=== PATIENT | male | born 1935 | race Caucasian/White ===

== ENCOUNTER 2018-02-15 11:29 | Inpatient (IN) | payer OTHER ==
[~2018-02-15] VITALS: Ht 165.1 cm; Wt 53.1 kg
[2018-02-15] MEDS ORDERED: VASOTEC10 MG PO (12:06)
[2018-03-20] MEDS ORDERED: INTESTINEX680 M1 PO ×2 (10:43→10:48)
[2018-03-20] MEDS ORDERED: OMEPRAZOLE20 M1 PO (10:43)
[2018-03-20] MEDS ORDERED: CLONAZEPAM0.25 MG PO (10:45)
[2018-03-20] MEDS ORDERED: OMEPRAZOLE20 MG PO (10:48)
[2018-03-20] MEDS ORDERED: INTEGRA F CAPS1 EACH PO (10:48)
== END 2018-03-20 14:08 | DRG 329 ==
LOC: ER 11:29 → EDBD 11:29 → ER 12:01 → SURG 18:11 → SEC-K 18:11 → MEDI 18:11 → SURG 02-21 16:48 → SURH 03-06 22:25
PROVIDERS: Surgery; Urology
PROC: 3E0336Z Introduction of Nutritional Substance into Peripheral Vein, Percutaneous Approach (ICD-10-PCS; 2018-02-16)
PROC: B246ZZZ Ultrasonography of Right and Left Heart (ICD-10-PCS; 2018-02-16)
PROC: 02HV33Z Insertion of Infusion Device into Superior Vena Cava, Percutaneous Approach (ICD-10-PCS; 2018-02-17)
PROC: 07TC4ZZ Resection of Pelvis Lymphatic, Percutaneous Endoscopic Approach (ICD-10-PCS; 2018-02-21)
PROC: 0W9J4ZX Drainage of Pelvic Cavity, Percutaneous Endoscopic Approach, Diagnostic (ICD-10-PCS; 2018-02-21)
PROC: 0T9880Z Drainage of Bilateral Ureters with Drainage Device, Via Natural or Artificial Opening Endoscopic (ICD-10-PCS; 2018-02-21)
PROC: 0D1N4Z4 Bypass Sigmoid Colon to Cutaneous, Percutaneous Endoscopic Approach (ICD-10-PCS; principal; 2018-02-21 10:45)
PROC: 0DTP4ZZ Resection of Rectum, Percutaneous Endoscopic Approach (ICD-10-PCS; 2018-02-21 10:45)
PROC: 4A033R1 Measurement of Arterial Saturation, Peripheral, Percutaneous Approach (ICD-10-PCS; 2018-02-28)
PROC: 4A12X4Z Monitoring of Cardiac Electrical Activity, External Approach (ICD-10-PCS; 2018-02-28)
PROC: BB24ZZZ Computerized Tomography (CT Scan) of Bilateral Lungs (ICD-10-PCS; 2018-03-03)
PROC: BW21Y0Z Computerized Tomography (CT Scan) of Abdomen and Pelvis using Other Contrast, Unenhanced and Enhanced (ICD-10-PCS; 2018-03-03)
PROC: 8E0ZXY6 Isolation (ICD-10-PCS; 2018-03-05)
DX: K63.1 Perforation of intestine (nontraumatic) (principal); K65.1 Peritoneal abscess; T80.211A Bloodstream infection due to central venous catheter, initial encounter; R65.21 Severe sepsis with septic shock; B37.7 Candidal sepsis; C19 Malignant neoplasm of rectosigmoid junction; K91.840 Postprocedural hemorrhage of a digestive system organ or structure following a digestive system procedure; B37.0 Candidal stomatitis; J95.89 Other postprocedural complications and disorders of respiratory system, not elsewhere classified; J98.11 Atelectasis; J91.8 Pleural effusion in other conditions classified elsewhere; L03.113 Cellulitis of right upper limb; E87.1 Hypo-osmolality and hyponatremia; I97.89 Other postprocedural complications and disorders of the circulatory system, not elsewhere classified; T81.43XA Infection following a procedure, organ and space surgical site, initial encounter; R59.0 Localized enlarged lymph nodes; I10 Essential (primary) hypertension; I25.10 Atherosclerotic heart disease of native coronary artery without angina pectoris; D64.89 Other specified anemias; K29.00 Acute gastritis without bleeding; B96.89 Other specified bacterial agents as the cause of diseases classified elsewhere; Z16.24 Resistance to multiple antibiotics; I80.8 Phlebitis and thrombophlebitis of other sites; L89.150 Pressure ulcer of sacral region, unstageable; L89.622 Pressure ulcer of left heel, stage 2; L89.611 Pressure ulcer of right heel, stage 1

== ENCOUNTER 2018-11-20 05:40 | Day surgery (SDC) | payer OTHER ==
[~2018-11-20 05:40] MED LIST: CLONAZEPAM0.25 MG PO; INTEGRA F CAPS1 EACH PO; INTESTINEX680 M1 PO; OMEPRAZOLE20 M1 PO; OMEPRAZOLE20 MG PO; VASOTEC10 MG PO
== END 2018-11-20 10:30 | disposition home or self-care (01) ==
LOC: AMB-ENDOS 05:40
DX: K57.30 Diverticulosis of large intestine without perforation or abscess without bleeding (principal)